=== PATIENT | male | born 1990 | race Caucasian/White ===

== ENCOUNTER 2017-07-28 03:27 | Emergency (ER) | payer BC, SELFPAY ==
[2017-07-28 03:35] VITALS: BP 121/80; PULSE 77; RESP 18; TEMP 36.7; O2SAT 97; BMI 36.2
[2017-07-28 03:57] LABS: Basophils % 0.3 % (0.1-2.0); Eosinophils # 0.3 K/mm3 (0.0-0.4); Eosinophils % 3.9 % (0.1-12.0); Hemoglobin 16.2 g/dL (14.1-18.0); Lymphocytes # 1.7 K/mm3 (0.7-4.5); Lymphocytes % 22.9 K/mm3 (10-50); Mean Corpuscular Hemoglobin 29.5 pg (27.0-31.2); Mean Corpuscular Volume 89.4 fl (80-94); Mean Platelet Volume 8.2 fl (7.4-10.4); Monocytes # 0.7 K/mm3 (0.1-1.0); Neutrophils # 4.7 K/mm3 (1.8-7.8); Neutrophils % 63.9 % (37.0-80.0); Platelet Count 307 K/mm3 (142-424); Red Blood Count 5.48 M/mm3 (4.60-6.20); Red Cell Distribution Width 12.6 % (11.5-17.5); White Blood Count 7.4 K/mm3 (4.8-10.8)
[2017-07-28 04:03] LABS: Anion Gap 14.5 mEq/L (5-15); Blood Urea Nitrogen 15 mg/dL (7-18); Carbon Dioxide 24 mmol/L (21.0-32.0); Chloride 107 mmol/L (98-107); Creatinine Clearance Estimated 259 mL/min (0-300); Creatinine,Serum 0.72 mg/dL (0.70-1.30); Estimated Glomerular Filt Rate 132 ml/min (>60); GFR (African American) 160 ML/MIN (>60); Glucose 108 mg/dL (74-106); Potassium 4.5 mmoL/L (3.5-5.1); Sodium 141 mmol/L (136-145)
--- NOTE | 2017-07-28 04:07 | [facility].EDGENADL ---
ED Disposition Clinical Impression: Lower extremity pain Qualifiers: Laterality: left Qualified Code(s): M79.605 - Pain in left leg Disposition: Home, Self-Care Condition on Discharge: Good Instructions: DI for Acute Pain -- Adult Additional Instructions: use meds and see pcp for follow up Prescriptions: predniSONE [Prednisone 20mg Tab] 20 mg PO DAILY #10 tab - Critical Care Critical Care Time: No Attestation: On 07/28/17, the high probability of a clinically significant, sudden or life threatening deterioration of the following system(s) required my full and direct attention, intervention and personal management. The time I documented below is in addition to time spent performing reported procedures but includes the following listed in this critical care notation. Medical Decision Making - Medical Records Medical records reviewed: Yes: I reviewed the patient's medical records. Vital Signs: 07/28/17 03:35 Temperature 98.0 F Temperature Source Oral Pulse Rate [Right Radial] 77 Respiratory Rate 18 Blood Pressure [Left Arm] 121/80 Blood Pressure Mean [Left Arm] 93 Blood Pressure Source [Left Arm] Automatic Cuff Blood Pressure Position [Left Arm] Sitting 02 Sat by Pulse Oximetry 97 Oxygen Delivery Method Room Air - Lab Data Lab results reviewed: Yes: I reviewed the patient's lab results. Lab Results 07/28/17 03:47: WBC 7.4, RBC 5.48, Hgb 16.2, Hct 49.0, MCV 89.4, MCH 29.5, MCHC 33.0, RDW 12.6, Plt Count 307, MPV 8.2, Neut % (Auto) 63.9, Lymph % (Auto) 22.9, [place] % (Auto) 9.0, Eos % (Auto) 3.9, Baso % (Auto) 0.3, Neut # (Auto) 4.7, Lymph # (Auto) 1.7, [place] # (Auto) 0.7, Eos # (Auto) 0.3, Baso # (Auto) 0.0 07/28/17 03:47: Sodium 141, Potassium 4.5, Chloride 107, Carbon Dioxide 24, Anion Gap 14.5, BUN 15, Creatinine 0.72, Estimated Creat Clear 259, Estimated GFR 132, Est GFR ( Amer) 160, Glucose 108 H Result diagrams: 07/28/17 03:47 07/28/17 03:47 Orders (Tests/Meds): ORDERS Category Date Time Status Complete Blood Count Auto Diff Stat Lab 07/28/17 03:47 Results Erythrocyte Sedimentation Rate Stat Lab 07/28/17 03:47 Results - Leonard Inquiry Pt receiving controlled substance: No General Adult HPI - General Chief complaint: PAIN Stated complaint: Pain in left leg Time Seen by Provider: 07/28/17 03:40 Mode of Arrival: Ambulatory Limitations: No Limitations Description of Symptoms (Recalled from ER Triage Doc. by RN): Pt reports pain from his left foot to his knee, with constant pain in his left calf. - History of Present Illness HPI narrative: over the last 2 days heel pain to post leg pain with chrystal trauma and worse with wt bearing Onset (ago): day(s) Location: lower extremity Radiation: non-radiation Severity: moderate Consistency: intermittent Associated symptoms: negative: shortness of breath, syncope - Related Data Previous Rx's Medication Instructions Recorded predniSONE [Prednisone 20mg 20 mg PO DAILY #10 tab 07/28/17 Tab] Allergies Allergy/AdvReac Type Severity Reaction Status Date / Time NO KNOWN ALLERGIES Allergy Uncoded 05/15/17 14:54 [facility] History I have reviewed the patient's past medical history: Yes - Social History Smoking Status: Current every day smoker Tobacco Type: cigarettes Alcohol Intake: never - Psychiatric History Expresses thoughts of harming self/others: None Suicide Plan Description: No Plan ROS Obtained: Yes All systems reviewed & no additional complaints - Constitutional Constitutional: Denies fever(s) - Eyes Eyes: Denies change in vision - ENT Ears, Nose, Mouth, and Throat: Denies sore throat - Cardiovascular Cardiovascular: Denies chest pain at rest - Respiratory Respiratory: No cough - Gastrointestinal Gastrointestingal: Denies: abdominal pain - Genitourinary Male Genitourinary: Denies flank pain - Musculoskeletal Musculoskeletal: Reports as per HPI, Reports joint pa
--- NOTE | 2017-07-28 04:10 | ED_ITS ---
ED Disposition Clinical Impression: Lower extremity pain Qualifiers: Laterality: left Qualified Code(s): M79.605 - Pain in left leg Disposition: Home, Self-Care Condition on Discharge: Good Instructions: DI for Acute Pain -- Adult Additional Instructions: use meds and see pcp for follow up Prescriptions: predniSONE [Prednisone 20mg Tab] 20 mg PO DAILY #10 tab - Critical Care Critical Care Time: No Attestation: On 07/28/17, the high probability of a clinically significant, sudden or life threatening deterioration of the following system(s) required my full and direct attention, intervention and personal management. The time I documented below is in addition to time spent performing reported procedures but includes the following listed in this critical care notation. Medical Decision Making - Medical Records Medical records reviewed: Yes: I reviewed the patient's medical records. Vital Signs: 07/28/17 03:35 Temperature 98.0 F Temperature Source Oral Pulse Rate [Right Radial] 77 Respiratory Rate 18 Blood Pressure [Left Arm] 121/80 Blood Pressure Mean [Left Arm] 93 Blood Pressure Source [Left Arm] Automatic Cuff Blood Pressure Position [Left Arm] Sitting 02 Sat by Pulse Oximetry 97 Oxygen Delivery Method Room Air - Lab Data Lab results reviewed: Yes: I reviewed the patient's lab results. Lab Results 07/28/17 03:47: WBC 7.4, RBC 5.48, Hgb 16.2, Hct 49.0, MCV 89.4, MCH 29.5, MCHC 33.0, RDW 12.6, Plt Count 307, MPV 8.2, Neut % (Auto) 63.9, Lymph % (Auto) 22.9 , [place] % (Auto) 9.0, Eos % (Auto) 3.9, Baso % (Auto) 0.3, Neut # (Auto) 4.7, Lymph # (Auto) 1.7, [place] # (Auto) 0.7, Eos # (Auto) 0.3, Baso # (Auto) 0.0 07/28/17 03:47: Sodium 141, Potassium 4.5, Chloride 107, Carbon Dioxide 24, Anion Gap 14.5, BUN 15, Creatinine 0.72, Estimated Creat Clear 259, Estimated GFR 132, Est GFR ( Amer) 160, Glucose 108 H Result diagrams: 07/28/17 03:47 07/28/17 03:47 Orders (Tests/Meds): ORDERS Category Date Time Status Complete Blood Count Auto Diff Stat Lab 07/28/17 03:47 Results Erythrocyte Sedimentation Rate Stat Lab 07/28/17 03:47 Results - [facility] Inquiry Pt receiving controlled substance: No General Adult HPI - General Chief complaint: PAIN Stated complaint: Pain in left leg Time Seen by Provider: 07/28/17 03:40 Mode of Arrival: Ambulatory Limitations: No Limitations Description of Symptoms (Recalled from ER Triage Doc. by RN): Pt reports pain from his left foot to his knee, with constant pain in his left calf. - History of Present Illness HPI narrative: over the last 2 days heel pain to post leg pain with chrystal trauma and worse with wt bearing Onset (ago): day(s) Location: lower extremity Radiation: non-radiation Severity: moderate Consistency: intermittent Associated symptoms: negative: shortness of breath, syncope - Related Data Previous Rx's Medication Instructions Recorded predniSONE [Prednisone 20mg 20 mg PO DAILY #10 tab 07/28/17 Tab] Allergies Allergy/AdvReac Type Severity Reaction Status Date / Time NO KNOWN ALLERGIES Allergy Uncoded 05/15/17 14:54 [facility] History I have reviewed the patient's past medical history: Yes - Social History Smoking Status: Current every day smoker Tobacco
[2017-07-28 04:31] VITALS: BP 138/68; PULSE 60; RESP 16; TEMP 37; O2SAT 99
[2017-07-28 04:35] LABS: Erythrocyte Sedimentation Rate 4 mm/hr (0-15)
== END 2017-07-28 04:39 | disposition home or self-care (01) ==
PROVIDERS: Emergency Provider Emergency Medicine
DX: M79.605 Pain in left leg (principal); F17.210 Nicotine dependence, cigarettes, uncomplicated
CPT/HCPCS: 80048; 85025; 85651; 99282